=== PATIENT | male | born 1995 ===

== ENCOUNTER 2018-02-15 17:50 | Emergency (ER) | payer SELFPAY ==
[2018-02-15 18:11] VITALS: BP 121/71; PULSE 96; RESP 20; O2SAT 97
[2018-02-15] MEDS ORDERED: Dexamethasone 4 mg/1 ml IM STA (18:50)
[2018-02-15] MEDS ORDERED: Dexamethasone 4 mg/1 ml ONE (18:54)
--- NOTE | 2018-02-15 18:54 | ED PDOC ---
HPI: General Adult Time Seen by Provider: 02/15/18 18:22 Chief Complaint (Nursing): ENT Problem Chief Complaint (Provider): sore throat History Per: Patient Onset/Duration Of Symptoms: Days (x 3) Current Symptoms Are (Timing): Still Present Additional Complaint(s): 22 year old male presents to the ED with throat pain for the last three days. Patient reports that the pain makes it difficult for him to eat or drink anything. He is able to tolerate his own saliva and water. He denies fever and coughing. PMD: none provided Past Medical History Reviewed: Historical Data, Nursing Documentation, Vital Signs Vital Signs: Last Vital Signs Temp 98.6 F 02/15/18 18:09 Pulse 96 H 02/15/18 18:09 Resp 20 02/15/18 18:09 BP 121/71 02/15/18 18:09 Pulse Ox 97 02/15/18 19:12 - Medical History PMH: No Chronic Diseases - Surgical History Surgical History: No Surg Hx - Family History Family History: States: No Known Family Hx - Living Arrangements Living Arrangements: With Family - Social History Current smoker - smoking cessation education provided: Yes Alcohol: Social Drugs: Cannabis - Home Medications Home Medications: Ambulatory Orders Medication Instructions Recorded Ibuprofen [Motrin] 600 mg PO TID PRN #30 tab 06/05/16 Azithromycin [Zithromax] 250 mg PO DAILY #6 tab 02/15/18 Ibuprofen [Motrin] 600 mg PO Q6 PRN #15 tab 02/15/18 - Allergies Allergies/Adverse Reactions: Allergies Allergy/AdvReac Type Severity Reaction Status Date / Time No Known Allergies Allergy Verified 02/15/18 18:08 Review of Systems ROS Statement: Except As Marked, All Systems Reviewed And Found Negative Constitutional: Negative for: Fever, Chills ENT: Positive for: Throat Pain Respiratory: Negative for: Cough Gastrointestinal: Negative for: Nausea, Vomiting Physical Exam - Reviewed Nursing Documentation Reviewed: Yes Vital Signs Reviewed: Yes - Physical Exam Appears: Positive for: Well, Non-toxic, No Acute Distress Skin: Positive for: Normal Color. Negative for: Rash Eye Exam: Positive for: Normal appearance ENT: Positive for: Pharyngeal Erythema, Tonsillar Exudate, Tonsillar Swelling. Negative for: Nasal Congestion Neck: Positive for: Normal Cardiovascular/Chest: Positive for: Regular Rate, Rhythm Respiratory: Positive for: Normal Breath Sounds. Negative for: Respiratory Distress Neurologic/Psych: Positive for: Alert, Oriented. Negative for: Motor/Sensory Deficits - ECG O2 Sat by Pulse Oximetry: 97 (RA) Pulse Ox Interpretation: Normal Medical Decision Making Medical Decision Making: Time: 18:50 Impression: tonsillitis Initial Plan: --Decadron 8 mg IM --Motrin 600 mg PO --Throat culture Patient treated empirically for tonsillitis, prescription for Motrin and Zithromax provided. Advised fluids, rest and follow-up with clinic in 2-3 days. Patient was counseled regarding smoking cessation. Scribe Attestation: Documented by Edyta Koenig, acting as a scribe for Mima Booth PA-C Provider Scribe Attestation: All medical record entries made by the Scribe were at my direction and personally dictated by me. I have reviewed the chart and agree that the record accurately reflects my personal performance of the history, physical exam, medical decision making, and the department course for this patient. I have also personally directed, reviewed, and agree with the discharge instructions and disposition. Disposition - Clinical Impression Clinical Impression: Tonsillitis - Patient ED Disposition Is Patient to be Admitted: No Counseled Patient/Family Regarding: Studies Performed, Diagnosis, Need For Followup, Rx Given, Smoking Cessation - Disposition Referrals: [facility] [Outside] Disposition: Routine/Home Disposition Time: 19:28 Condition: STABLE Additional Instructions: Take rx meds as directed. Follow up with clinic in 2-3 days. Prescriptions: Azithromycin [Zithromax] 250 mg PO DAILY #6 tab Ibuprofen [Motrin] 600 mg PO Q6 PRN #15 tab PRN Reason: Pain, Moderate (4-7) Instructions: Sore Throat, Adult (DC), Quitting Smoking Forms: [employer] (Ch[place]an)
[2018-02-15 19:46] VITALS: TEMP 98.2
== END 2018-02-15 19:45 | disposition home or self-care (01) ==
LOC: H.ER 17:50
DX: J03.90 Acute tonsillitis, unspecified (principal); F17.200 Nicotine dependence, unspecified, uncomplicated
CPT/HCPCS: 87070; 96372; 99283; J1100